=== PATIENT | female | born 1935 ===

== ENCOUNTER → 2019-04-21 07:19 | Outpatient (CLI) | payer OTHER ==
[~2019-04-21 07:19] MED LIST: ALDACTONE25 MG PO; ASPIR 8181 MG PO; CARDURA XL4 MG PO; CARDURA XL8 MG PO; CARVEDILOL3.125 MG PO; DIOVAN320 MG PO; HUMALOG100 UNIT/2 SUBCUTANEO; HUMULIN N100 UNIT/2 SUBCUTANEO; ISOSORBIDE MONO30 MG; LANTUS SOL100 UNIT/1 SUBCUTANEO; LASIX40 MG; MEMANTINE HCL10 MG PO; PROTONIX40 MG PO; SIMVASTATIN20 MG PO; SYNTHROID75 MCG PO; VITAMIN D35000 UNI2 PO
== END | disposition home or self-care (01) ==
LOC: LAB 07:19
DX: D64.89 Other specified anemias (principal); E88.89 Other specified metabolic disorders; D68.8 Other specified coagulation defects; N39.0 Urinary tract infection, site not specified; Z22.322 Carrier or suspected carrier of Methicillin resistant Staphylococcus aureus; Z76.89 Persons encountering health services in other specified circumstances; I10 Essential (primary) hypertension

== ENCOUNTER 2019-05-05 09:09 | Inpatient (IN) | payer OTHER ==
[~2019-05-05] VITALS: Ht 157.5 cm; Wt 192.0 kg
== END 2019-05-08 21:40 | DRG 470 ==
LOC: CIR.AMB 09:09 → O/R 11:40 → SURG 11:40 → CIR.AMB 16:02 → SURG 18:25
PROVIDERS: ADMIT Orthopaedic Surgery
PROC: 0SRD0J9 Replacement of Left Knee Joint with Synthetic Substitute, Cemented, Open Approach (ICD-10-PCS; principal; 2019-05-05 12:00)
DX: M17.12 Unilateral primary osteoarthritis, left knee (principal); D62 Acute posthemorrhagic anemia; E03.9 Hypothyroidism, unspecified; I10 Essential (primary) hypertension; E11.9 Type 2 diabetes mellitus without complications

== ENCOUNTER 2019-10-15 09:54 | Outpatient (CLI) | payer OTHER | END 2019-10-15 09:59 | disposition home or self-care (01) | LOC: MRI 09:54 | PROVIDERS: ATTEND Orthopaedic Surgery | DX: M54.5 Low back pain (principal) | CPT/HCPCS: 72148 ==

== ENCOUNTER 2019-10-21 09:47 | Outpatient (CLI) | payer OTHER | END 2019-10-21 10:24 | disposition home or self-care (01) | LOC: NUCLEAR 09:47 | PROVIDERS: ATTEND Orthopaedic Surgery | DX: T84.89XA Other specified complication of internal orthopedic prosthetic devices, implants and grafts, initial encounter (principal); M25.561 Pain in right knee | CPT/HCPCS: 78315; 78802; A9503; A9556 ==